=== PATIENT | female | born 1960 | race Caucasian/White ===

== ENCOUNTER 2017-07-04 10:31 | Emergency (ER) | payer OTHER ==
--- NOTE | 2017-07-04 12:41 | CT ---
HEAD CT NONCONTRAST: Indication: Head injury. Comparison: None. FINDINGS: There is a normal sized ventricular system. No intracranial hemorrhage, mass effect, or midline shift . There is prominent posteriorly located, bilateral scalp hematoma formation. No underlying depressed calvarial fracture. Punctate hypodensity at the posterior lentiform nucleus could relate to lacunar infarction, or dilated perivascular space. IMPRESSION: 1. No acute intracranial abnormality. 2. Prominent scalp hematoma posteriorly. POS: [facility]
--- NOTE | 2017-07-04 12:51 | CT ---
FACIAL BONES CT: 07/04/2017 HISTORY: Fall. Trauma. Pain. COMPARISON: None. TECHNIQUE: Serial axial CT imaging is obtained at 2.5 mm intervals, through the maxillofacial bones, without con trast. Coronal and sagittal reformatted imaging obtained. FINDINGS: The frontal sinuses, sphenoid sinuses, ethmoid air cells, and maxillary sinuses are clear. The visua lized portions of the bilateral mastoid air cells appear unremarkable. Neither temporomandibular joint is dislocated. Motion slightly limits assessment of the mandible at the level of the angle bilaterally. No displaced mandibular fracture is evident on either side. The orbital floor and medial orbital wall is intact bilaterally. There are incompletely assessed degenerative changes involving the cervical spine, better assessed on the 07/04/2017 CT examination of the cervical spine. There is mild skin thickening and subcutaneous fat stranding in the perimandibular and submandibular regions on the left. IMPRESSION: 1. No displaced fracture. 2. Nonspecific mild subcutaneous fat stranding and skin thickening in the left perimandibular/subman dibular regions. This could be on the basis of trauma. Of note, evaluation of the mandible is sligh tly limited on the basis of motion artifact. If there is any concern for an acute mandibular fractur e, repeat imaging would be required. POS: [facility]
--- NOTE | 2017-07-04 12:55 | CT ---
CT CERVICAL SPINE WITH CORONAL AND SAGITTAL REFORMATIONS: HISTORY: Injury. Fall. Neck pain. FINDINGS: Degenerative changes are seen in the cervical spine. No acute fracture is noted in the cervical spin e. There is minimal anterolisthesis of the C4 over C5 vertebral body. There is loss of cervical sonia dosis. There is a wedge compression fracture of the superior endplate of the T1 vertebral body with mild hei ght loss. Report was called over the telephone, to JONATHAN Alvares, at 11:47 a.m. CODE CR POS: [facility]
[2017-07-04] MEDS ORDERED: HYDROcodone/Acetaminophen 5/325 mg Tablet ONE (13:22)
== END 2017-07-04 13:32 | disposition home or self-care (01) ==
LOC: ERS 10:31
DX: S22.010A Wedge compression fracture of first thoracic vertebra, initial encounter for closed fracture (principal); S00.03XA Contusion of scalp, initial encounter; I10 Essential (primary) hypertension; Z79.82 Long term (current) use of aspirin; Z79.899 Other long term (current) drug therapy; W01.198A Fall on same level from slipping, tripping and stumbling with subsequent striking against other object, initial encounter
CPT/HCPCS: 70450; 70486; 72125

== ENCOUNTER 2018-03-12 08:18 | Outpatient (CLI) | payer OTHER ==
--- NOTE | 2018-03-12 14:34 | MRI ---
MRI LUMBAR SPINE WITHOUT CONTRAST: Date: 03/12/18 HISTORY: Low back pain, radiating down the legs for some time. COMPARISON: 07-08-16 TECHNIQUE: MRI lumbar spine is performed without intravenous Gadolinium administration. Multisequential, multipl marilee imaging is performed. FINDINGS: There is mild loss of vertebral body height at T12. Irregularity along the superior end plate may rep resent a Schmorl's node, which is superimposed upon a mild compression fracture. No edema to suggest acuity. Minimal retropulsion. Appropriate signal intensity of the visualized lumbar vertebra. No significant STIR hyperintensity to suggest vertebral body edema or ligamentous injury. 3.5 mm of anterolisthesis of L4 upon L5. Facet h ypertrophy bilaterally with fluid in both facet joints. Multiple synovial cysts are present in the po sterior paraspinal soft tissues. Conus medullaris terminates at the inferior aspect of T12. T12-L1: Adequate disc hydration. No significant central canal stenosis. Foramina are patent. L1-L2: Adequate disc hydration. No significant central canal stenosis. Foramina are patent. L2-L3: Desiccation with mild loss of disc space height. Generalized disc bulge results in mild centr al canal stenosis. Right neural foramen is patent. Mild left neural foraminal narrowing. L3-L4: Adequate disc hydration. No significant central canal stenosis. Mild posterior element hypert rophy. Neural foramina are patent. L4-L5: Adequate disc hydration. No significant loss of disc space height. Broad based disc bulge, li gamentum flavum thickening, and facet hypertrophy result in moderate central canal stenosis. Moderate to severe right foraminal narrowing. Left neural foramen is patent. L5-S1: Adequate disc hydration. No significant central canal stenosis. Neural foramina are patent. P reviously noted Synovial cyst encroaching upon the right subarticular zone is no longer evident on th e current examination. IMPRESSION: 1. Degenerative changes of the lumbar spine as above. Moderate central canal stenosis at L4-L5. 2. Grade I anterolisthesis of L4 upon L5. 3. Moderate to severe right foraminal narrowing at L4-L5. 4. Stable mild loss of vertebral body height at T12. POS: [facility]
== END 2018-03-12 08:19 | disposition home or self-care (01) ==
LOC: SCSMRI 08:18
PROVIDERS: ATTEND Specialist
DX: M54.17 Radiculopathy, lumbosacral region (principal); M48.061 Spinal stenosis, lumbar region without neurogenic claudication; M43.16 Spondylolisthesis, lumbar region; M47.816 Spondylosis without myelopathy or radiculopathy, lumbar region
CPT/HCPCS: 72148

== ENCOUNTER 2019-03-18 12:04 | Outpatient (CLI) | payer OTHER ==
--- NOTE | 2019-03-18 13:12 | RAD ---
EXAM: XR Lumbar Spine Comp W Bending PROVIDED CLINICAL HISTORY: Lumbar radiculopathy. Patient states prior low back surgery. COMPARISON: MRI lumbar spine on 03/12/2018. FINDINGS: There are mild compression fractures involving the superior endplates of the T12 and L1 vertebral bod ies. These compression fractures were noted on the prior MRI examination and degree of height loss is unchanged. Postsurgical changes are present at the L4-5 level with bipedicular screws and posterio r rods transfixing the L4 and L5 vertebral bodies. Slight grade 1 anterolisthesis of L4 and L5. Intradiscal prosthesis is present at this level. Scattered osteophytes are seen in the lumbar spine. There is mild right convex curvature of the thoracolumbar spine. Surgical clips overlie the right upper quadrant. IMPRESSION: 1. Degenerative and postoperative changes lumbar spine. 2. Compression fractures involving superior endplates of the T12 and L3 vertebral bodies. Compression fractures were noted on prior MRI exam.
== END 2019-03-18 12:05 | disposition home or self-care (01) ==
LOC: BICRAD 12:04
PROVIDERS: ATTEND Neurological Surgery
DX: M47.26 Other spondylosis with radiculopathy, lumbar region (principal); Z98.890 Other specified postprocedural states; S32.039A Unspecified fracture of third lumbar vertebra, initial encounter for closed fracture; S22.089A Unspecified fracture of T11-T12 vertebra, initial encounter for closed fracture
CPT/HCPCS: 72100